=== PATIENT | female | born 1945 | race Caucasian/White ===

== ENCOUNTER 2016-11-13 11:22 | Emergency (ER) | payer MEDICARE | END 2016-11-13 12:35 | disposition home or self-care (01) | LOC: D.ER 11:22 | DX: S99.912A Unspecified injury of left ankle, initial encounter (principal); X58.XXXA Exposure to other specified factors, initial encounter; Y93.89 Activity, other specified; Y92.89 Other specified places as the place of occurrence of the external cause ==